=== PATIENT | male | born 1995 ===

== ENCOUNTER 2022-11-23 21:23 | Emergency (ER) | payer OTHER, SELFPAY ==
[2022-11-23 21:31] VITALS: BP 142/74; PULSE 73; RESP 18; TEMP 36.6; O2SAT 98; BMI 29.5
--- NOTE | 2022-11-23 23:46 | ED_ITS ---
HPI - Allergic Reaction General Chief complaint: Allergic Reaction Stated complaint: allergic rash all over body Time Seen by Provider: 11/23/22 23:19 Source: patient Mode of arrival: ambulatory Limitations: no limitations History of Present Illness HPI narrative: Patient been having maculopapular rash last 3- 4 days with itching unknown etiology no vesicular rash no oral rash been taking Benadryl partial response no oral lesion no history of allergic reaction in the past no new chemical use or medication no shortness of breath or difficulty in swallowing Related Data Previous Rx's Medication Instructions Recorded diphenhydramine HCl 25 mg capsule 50 mg PO TID PRN allergic reaction 11/23/22 (Benadryl) #20 caps prednisone 20 mg tablet 40 mg PO DAILY #10 tabs 11/23/22 Allergies Allergy/AdvReac Type Severity Reaction Status Date / Time No Known Allergies Allergy Verified 11/23/22 21:31 Review of Systems Review of Systems: Yes all other systems are reviewed and are negative PMFSH Social History Social History Advance Directives: No Advance Directives Information Provided: No Physical Exam ED Vital Signs: Vital Signs - 24 hr 11/23/22 21:31 Temperature 97.9 F Pulse Rate 73 Respiratory Rate 18 Blood Pressure 142/74 H Pulse Oximetry 98 Oxygen Delivery Method Room Air BMI result Body Mass Index 29.5 Appearance: Alert. Oriented X3. No acute distress. ENT: Pharynx normal. Oral Mucosa moist Neck: Normal inspection. Neck supple. CVS: Normal heart rate and rhythm. Pulses normal. Respiratory: No respiratory distress. Equal air entry bilateral, no wheezing/rales/rhonchi Abdomen: Soft and nontender. Bowel sounds are present, no mass palpable, no CVA tenderness Skin: Skin warm and dry. Maculopapular rash all over the trunk and extremities Extremities: No lower extremity edema. No calf tenderness Neuro: Oriented X 3. Medications Administered Discontinued Medications Generic Name Dose Route Start Last Admin Trade Name Freq PRN Reason Stop Dose Admin Prednisone 60 mg 11/23/22 23:39 11/24/22 00:17 Prednisone 20 Mg Tablet PO 11/23/22 23:40 60 mg ONCE ONE Administration Medical Decision Making Medical Decision Making MDM Narrative: Patient with nonspecific rash etiology not clear discharge patient home on Benadryl and prednisone Discharge Plan Discharge Clinical Impression: Allergic reaction Patient Disposition: Home, Self-Care Instructions: General Allergic Reaction (ED) Additional Instructions: Continue to take Benadryl 50 mg every 6 hours as needed Prednisone 40 mg a day for 5 days Follow with PCP as needed if not better Contin?e tomando Benadryl 50 mg cada 6 horas seg?n sea necesario Prednisona 40 mg al d?a arnoldo 5 d?as Siga con PCP seg?n sea necesario si no mejor Prescriptions: New prednisone 20 mg tablet 40 mg PO DAILY Qty: 10 0RF diphenhydramine HCl [Benadryl] 25 mg capsule 50 mg PO TID PRN (Reason: allergic reaction) Qty: 20 0RF Interventions: ED Discharge Assessment Last Done: 11/24/22 00:20 Discharge Date/Time: 11/24/22 00:20 Print Language: Slovak
[2022-11-24] MEDS: predniSONE 20 MG TABLET 60 MG PO (00:17)
== END 2022-11-24 00:20 | disposition home or self-care (01) ==
PROVIDERS: Emergency Provider Internal Medicine; PCP Internal Medicine
DX: L50.0 Allergic urticaria (principal)
CPT/HCPCS: 99282

== ENCOUNTER 2023-01-08 18:25 | Emergency (ER) | payer OTHER, SELFPAY ==
[2023-01-08 19:27] VITALS: BP 152/95; PULSE 82; RESP 18; TEMP 36.1; O2SAT 98; BMI 32.9
--- NOTE | 2023-01-08 20:23 | ED_ITS ---
HPI - Dental/Oral General Chief complaint: Dental/Oral Stated complaint: toothache Time Seen by Provider: 01/08/23 20:22 Source: patient Mode of arrival: ambulatory Limitations: no limitations History of Present Illness HPI Narrative: Patient has been having pain in his right upper teeth for last few days gum swelling unable to get a dentist till 01/23 no fever no chills does have multiple cavities in the past Related Data Previous Rx's Medication Instructions Recorded diphenhydramine HCl 25 mg capsule 50 mg (2 x 25 mg) PO TID PRN 11/23/22 (Benadryl) allergic reaction #20 caps prednisone 20 mg tablet 40 mg (2 x 20 mg) PO DAILY #10 tabs 11/23/22 amoxicillin 875 mg-potassium 1 tab PO BID #20 tabs 01/08/23 clavulanate 125 mg tablet tramadol 50 mg tablet 50 mg PO Q6H PRN pain #20 tabs 01/08/23 Allergies Allergy/AdvReac Type Severity Reaction Status Date / Time No Known Allergies Allergy Verified 01/08/23 19:26 Review of Systems 2 Review of Systems: Yes all other systems are reviewed and are negative [facility] Social History Social History Advance Directives: No Advance Directives Information Provided: No Physical Exam 2 Vital Signs: Vital Signs: Last Vital Signs Temp 97.0 F 01/08/23 19:27 Pulse 72 01/08/23 20:43 Resp 20 01/08/23 20:43 BP 167/74 H 01/08/23 20:43 Pulse Ox 99 01/08/23 20:43 O2 Del Method Room Air 01/08/23 20:43 BMI result Body Mass Index 32.9 HEENT: Teeth image: 1. Cavity with tenderness with slight gum swelling Medications Administered Discontinued Medications Generic Name Dose Route Start Last Admin Trade Name Freq PRN Reason Stop Dose Admin Amoxicillin/Clavulanate Potassium 875 mg 01/08/23 20:36 01/08/23 20:44 Amoxicillin/Potassium Clav 875 Mg Tablet PO 01/08/23 20:37 875 mg ONCE ONE Administration Oxycodone HCl 10 mg 01/08/23 20:36 01/08/23 20:44 Oxycodone Hcl Immed Release 5 Mg Tablet PO 01/08/23 20:37 10 mg ONCE ONE Administration Medical Decision Making Medical Decision Making [facility] Narrative: Patient with dental caries will discharge on Augmentin and pain medication Discharge Plan Discharge Clinical Impression: Dental caries Patient Disposition: Home, Self-Care Instructions: Toothache (ED) Additional Instructions: Take antibiotics and pain medication as prescribed Follow-up with dentist Prescriptions: New tramadol 50 mg tablet 50 mg PO Q6H PRN (Reason: pain) Qty: 20 0RF amoxicillin-pot clavulanate 875-125 mg tablet 1 tab PO BID Qty: 20 0RF No Action prednisone 20 mg tablet 40 mg PO DAILY Qty: 10 0RF diphenhydramine HCl [Benadryl] 25 mg capsule 50 mg PO TID PRN (Reason: allergic reaction) Qty: 20 0RF Interventions: ED Discharge Assessment Last Done: 01/08/23 20:51 Discharge Date/Time: 01/08/23 20:51
[2023-01-08 20:43] VITALS: BP 167/74; PULSE 72; RESP 20; O2SAT 99
[2023-01-08] MEDS: Amoxicillin/Potassium Clav 875 MG TABLET PO (20:44)
[2023-01-08] MEDS: oxyCODONE HCl Immed Release 5 MG TABLET 10 MG PO (20:44)
== END 2023-01-08 20:51 | disposition home or self-care (01) ==
PROVIDERS: Emergency Provider Internal Medicine; PCP Internal Medicine
DX: K02.9 Dental caries, unspecified (principal); K08.89 Other specified disorders of teeth and supporting structures
CPT/HCPCS: 99283

== ENCOUNTER 2023-03-18 08:55 | Emergency (ER) | payer OTHER, SELFPAY ==
[2023-03-18 09:06] VITALS: BP 151/74; PULSE 86; RESP 18; TEMP 37.2; O2SAT 99; BMI 31.7
[2023-03-18 09:30] LABS: IDNOW Serial# 08D9AD1C; Strep A Nucleic Acid Negative (Negative)
[2023-03-18 09:36] LABS: COVID-19 Test Negative (Negative); IDNOW Serial# BCCEAD1C
--- NOTE | 2023-03-18 11:33 | ED_ITS ---
HPI - URI/Sore Throat General Chief Complaint: Upper Respiratory Symptoms Stated Complaint: Sore Throat Time Seen by Provider: 03/18/23 11:33 Source: patient and certified court/medical interpreter Mode of arrival: ambulatory Limitations: language barrier History of Present Illness HPI Narrative: 28 yo male with no known medical history here with complaints of 2 days of cough, sore throat, nasal congestion. Sister is here with similar symptoms. No diff breathing, diff swallowing, skin rash, headache, fevers, chills, vomiting, diarrhea, abdominal pain. Related Data Previous Rx's Medication Instructions Recorded diphenhydramine HCl 25 mg capsule 50 mg (2 x 25 mg) PO TID PRN 11/23/22 (Benadryl) allergic reaction #20 caps prednisone 20 mg tablet 40 mg (2 x 20 mg) PO DAILY #10 tabs 11/23/22 amoxicillin 875 mg-potassium 1 tab PO BID #20 tabs 01/08/23 clavulanate 125 mg tablet tramadol 50 mg tablet 50 mg PO Q6H PRN pain #20 tabs 01/08/23 acetaminophen 325 mg tablet 650 mg (2 x 325 mg) PO Q4H PRN 03/18/23 (Tylenol) fever or pain #60 tabs ibuprofen 600 mg tablet 600 mg PO Q8H PRN fever or pain 03/18/23 #30 tabs Allergies Allergy/AdvReac Type Severity Reaction Status Date / Time No Known Allergies Allergy Verified 03/18/23 09:06 Review of Systems Review of Systems: Yes all other systems are reviewed and are negative Constitutional: Constitutional: Reports no additional constitutional complaints, Denies body ache(s), Denies chills, Denies fever(s), Denies headache(s) and Denies weakness Eyes: Eyes: Reports no additional eye complaints and Denies change in vision ENT: Reports system reviewed and no additional complaints, except as documented, Denies dizziness, Denies headache(s), Reports nasal congestion, Denies nasal discharge, Denies neck pain and Reports sore throat Cardiovascular: Cardiovascular: Reports no additional cardiovascular complaints, Denies chest pain, Denies leg edema and Denies dyspnea Respiratory: Respiratory: Reports no additional respiratory complaints, Reports cough and Denies dyspnea Gastrointestinal: Gastrointestinal: Reports no additional gastrointestinal complaints, Denies abdominal pain, Denies diarrhea, Denies nausea and Denies vomiting Genitourinary: Genitourinary: Denies urinary incontinence Musculoskeletal: Musculoskeletal: Reports no additional musculoskeletal complaints, Denies back pain, Denies arthralgias, Denies joint swelling, Denies neck pain, Denies numbness and Denies tingling Integumentary/Breasts: Skin/Breast: Reports system reviewed and no additional complaints, except as docu and Denies rash Neurologic: Reports system reviewed and no additional complaints, except as documented, Denies Abnormal speech present, Denies dizziness, Denies headache(s), Denies numbness, Denies tingling and Denies weakness [facility] Past Medical History Attestation statement: The following information was validated with the patient. Source: old records reviewed and nursing notes reviewed Social History Advance Directives: No Advance Directives Information Provided: No Physical Exam Vital Signs: Vital Signs: Last Vital Signs Temp 99.0 F 03/18/23 09:06 Pulse 86 03/18/23 09:06 Resp 18 03/18/23 09:06 BP 151/74 H 03/18/23 09:06 Pulse Ox 99 03/18/23 09:06 O2 Del Method Room Air 03/18/23 09:06 BMI result Body Mass Index 31.7 Const: General: cooperative, healthy appearing, comfortable and no acute distress Orientation/consciousness: patient oriented x3 Limitations: no limitations HEENT: Head: Yes normal to inspection Ears: hearing grossly normal bilaterally and TM's normal bilaterally General nose exam: Normal external nose present Face and sinus: Yes normal facial exam Mouth: Normal oral and palatal mucosa present Throat: Yes posterior oropharynx normal, Yes tonsils normal and Yes uvula midline Eyes: General: appearance normal, both eyes and all related structures Pupils: Equal, round and reactive pupils present Neck: Neck: Yes normal visual inspection, Yes full ROM, Yes no lymphadenopathy and Yes no meningeal signs Chest: Chest palpation & inspection: normal inspection of the chest Resp: Effort & Inspection: normal respiratory effort Auscultation: clear to auscultation bilaterally Cardio: Rate: regular rate Rhythm: regular rhythm Peripheral pulses: Peripheral pulses 2+ throughout GI: Inspection: Yes normal to inspection Palpation (GI): Soft to palpation and nontender Auscultation: normal bowel sounds Back/Spine/Pelvis: Thoracic/Lumbar Spine: thoracic and lumbar spine normal to inspection Skin: General skin exam: no rashes or lesions noted Neuro: General: patient oriented x3, no meningeal signs, no focal motor deficits and normal sensation to monofilament Cranial nerves: Yes Equal, round and reactive pupils present Cognition (Neuro): normal cognition Speech: No Abnormal speech present Gait exam (Neuro): Normal gait present Motor exam (neuro): 5/5 motor strength present throughout Extrem: General: Yes normal to inspection Course Course Course Narrative: Strep/covid testing negative. likely viral syndrome. Reviewed worrisome signs.symptoms with patient and when to seek additional care. Comfortable with plan for discharge home. Medical Decision Making Medical Decision Making [facility] Narrative: 28 yo male with no known medical history here with complaints of 2 days of cough, sore throat, nasal congestion. Sister is here with similar symptoms. No diff breathing, diff swallowing, skin rash, headache, fevers, chills, vomiting, diarrhea, abdominal pain. Exam is benign. VSS. Likely viral syndrome. Will review strep/covid testing Differential Diagnosis Differential Diagnoses: The differential diagnosis associated with the presentation includes viral syndrome, strep pharyngitis, aom Admission/Observation Consideration of admission/observation: Escalation of care including admission/observation considered no hypoxia requiring supp oxygen, tolerating PO/well hydrated appearing-no need for labs, IVF or admission Lab Data MDM Lab Attestation statement: I reviewed the patient's lab results. covid/strep testing negative Labs: Lab Results 03/18/23 Range/Units 09:10 COVID-19 (KUN) Negative (Negative) COVID-19 Clin Com See Note S. pyogenes GrpA TRESSA Negative (Negative) Independent Historian Clinical information obtained from an independent historian. History obtained from or confirmed by: Parent Tests considered The following testing was considered but not selected: no hypoxia to suggest need for CXR Prescription Management I considered prescription management with: Antibiotic Discharge Plan Discharge Clinical Impression: Viral infection Patient Disposition: Home, Self-Care Instructions: Viral Syndrome (ED) Additional Instructions: testing for covid and strep are negative. Motrin or tylenol for pain or fever as needed. Increase fluids at home. return for worsening symptoms Las pruebas de covid y estreptococo son negativas. Motrin o tylenol para el dolor o la fiebre seg?n sea necesario. Aumentar l?quidos en casa. regresar si los s?ntomas empeoran Prescriptions: New ibuprofen 600 mg tablet 600 mg PO Q8H PRN (Reason: fever or pain) Qty: 30 0RF acetaminophen [Tylenol] 325 mg tablet 650 mg PO Q4H PRN (Reason: fever or pain) Qty: 60 0RF No Action prednisone 20 mg tablet 40 mg PO DAILY Qty: 10 0RF diphenhydramine HCl [Benadryl] 25 mg capsule 50 mg PO TID PRN (Reason: allergic reaction) Qty: 20 0RF tramadol 50 mg tablet 50 mg PO Q6H PRN (Reason: pain) Qty: 20 0RF amoxicillin-pot clavulanate 875-125 mg tablet 1 tab PO BID Qty: 20 0RF Referrals: Monica Brito MD [Primary Care Provider] - 1 week Interventions: ED Discharge Assessment Last Done: 03/18/23 11:40 Discharge Date/Time: 03/18/23 11:40 Print Language: Persian
== END 2023-03-18 11:40 | disposition home or self-care (01) ==
PROVIDERS: Emergency Provider Emergency Medicine; PCP Internal Medicine
DX: B34.9 Viral infection, unspecified (principal); J02.9 Acute pharyngitis, unspecified; R05.9 Cough, unspecified; R09.81 Nasal congestion; Z11.52 Encounter for screening for COVID-19
CPT/HCPCS: 87635; 87651; 99282; 99283